=== PATIENT | female | born 1990 | race Two or more races ===

== ENCOUNTER 2020-08-11 13:12 | Emergency (ER) | payer SELFPAY ==
--- NOTE | 2020-08-11 13:38 | NUR ---
ATTEMPTED TO CALL PT FROM LOBBY TO ROOM. PT NIL X 1
--- NOTE | 2020-08-11 13:58 | NUR ---
CALLED FOR TRIAGE, NO ANSWER
--- NOTE | 2020-08-11 14:12 | NUR ---
CALLED FOR TRIAGE, NO ANSWER
== END 2020-08-11 14:13 | disposition left against medical advice (07) ==
LOC: ED 14:08
DX: K08.89 Other specified disorders of teeth and supporting structures (principal); Z53.21 Procedure and treatment not carried out due to patient leaving prior to being seen by health care provider